=== PATIENT | female | born 1980 | race Caucasian/White ===

== ENCOUNTER → 2017-03-03 | Emergency (ER) | payer OTHER ==
[~2017-03-03] VITALS: Ht 170.2 cm; Wt 127.6 kg
[~2017-03-03] MED LIST: HTN MED; LISINOPRIL5 MG PO; MOTRIN600 MG PO
[2017-03-03 18:47] VITALS: BP 193/112
== END | disposition home or self-care (01) ==
LOC: EME 15:03
DX: M79.89 Other specified soft tissue disorders (principal); I10 Essential (primary) hypertension; S92.901D Unspecified fracture of right foot, subsequent encounter for fracture with routine healing; W10.9XXD Fall (on) (from) unspecified stairs and steps, subsequent encounter; F17.200 Nicotine dependence, unspecified, uncomplicated
CPT/HCPCS: 93971; 99281; 99284

== ENCOUNTER → 2017-04-29 | Outpatient (CLI) | payer OTHER | END | disposition home or self-care (01) | LOC: CDC 10:02 | DX: Z01.810 Encounter for preprocedural cardiovascular examination (principal); S92.351D Displaced fracture of fifth metatarsal bone, right foot, subsequent encounter for fracture with routine healing; I10 Essential (primary) hypertension; F17.210 Nicotine dependence, cigarettes, uncomplicated; R94.31 Abnormal electrocardiogram [ECG] [EKG] | CPT/HCPCS: 93000 ==